=== PATIENT | female | born 1995 | race Caucasian/White ===

== ENCOUNTER 2019-11-28 16:25 | Emergency (ER) | payer MEDICAID ==
[~2019-11-28] VITALS: Ht 160 cm; Wt 81.6 kg
[2019-11-28 16:38] VITALS: BP 144/75
[2019-11-28] MEDS ORDERED: IBUPROFEN 800 MG TAB PO ONE (16:45)
--- NOTE | 2019-11-28 17:00 | NUR ---
24/F c/o tonsillar pain x 3 days and recurring tonsil stones usually able to rid of them but recurring more often now Temp 102.0 at triage hx--tonsil stones rx---none
--- NOTE | 2019-11-28 17:28 | NUR ---
Patient discharged with v/s stable. Written and verbal after care instructions given and explained. Patient alert, oriented and verbalized understanding of instructions. Ambulatory with steady gait. All questions addressed prior to discharge. ID band removed. Patient advised to follow up with PMD. Rx of ibuprofen, prednisone, and augmentin given. Patient educated on indication of medication including possible reaction and side effects. Opportunity to ask questions provided and answered.
[2019-11-28 17:30] VITALS: BP 144/75
== END 2019-11-28 17:28 | disposition home or self-care (01) ==
LOC: MED 16:25
DX: J02.0 Streptococcal pharyngitis (principal)
CPT/HCPCS: 99282

== ENCOUNTER 2019-12-20 20:08 | Emergency (ER) | payer MEDICAID ==
[~2019-12-20] VITALS: Ht 160 cm; Wt 83.9 kg
[2019-12-20 20:28] VITALS: BP 127/70
--- NOTE | 2019-12-20 20:37 | NUR ---
PT TAKEN TO BED 4
--- NOTE | 2019-12-20 20:45 | NUR ---
DR. DIANA AT BEDSIDE EVALUATING PT.
--- NOTE | 2019-12-20 20:53 | NUR ---
24 Y/O F PRESENTS TO ED C/O "LUMP ON THE LEFT SIDE INSIDE OF HER THROAT." PT STATES THAT SHE NOTICED THAT SHE HAS A "LUMP" ON THE LEFT SIDE OF HER THROAT. PER PT, PAINFUL WHEN SHE SWALLOWS AND HAS DIFFICULTY SWALLOWING. NO LUMPS WAS OBSERVED OUTSIDE OF HER NECK. AIRWAY INTACT, RR EVEN AND UNLABORED. LUNG SOUNDS CLEAR UPON AUSCULTATION. DENIES N/V/CHILLS/FEVER. BED LOCKED AND IN LOWEST POSITION, SIDE RAIL UP X1. WILL CONTINUE TO MONITOR. MHX: DENIES NKA
--- NOTE | 2019-12-20 20:54 | NUR ---
PT TAKEN TO RADIOLOGY VIA WHEELCHAIR.
--- NOTE | 2019-12-20 20:59 | NUR ---
PT RETURN FROM XRAY
--- NOTE | 2019-12-20 21:00 | NUR ---
PELON COLLECTED AND WALKED OVER TO LAB.
[2019-12-20 21:48] VITALS: BP 127/70
== END 2019-12-20 21:48 | disposition home or self-care (01) ==
LOC: MED 20:08
DX: J02.9 Acute pharyngitis, unspecified (principal)
CPT/HCPCS: 70360; 87081; 99284

== ENCOUNTER 2020-01-19 15:50 | Emergency (ER) | payer MEDICAID ==
[~2020-01-19] VITALS: Ht 160 cm; Wt 83.5 kg
[2020-01-19 16:00] VITALS: BP 117/67
--- NOTE | 2020-01-19 16:12 | NUR ---
PT AMBULATED TO ER BED 06
--- NOTE | 2020-01-19 16:18 | NUR ---
Pt c/o sternal chest pain that increases with breathing. States 6/10 pain that started this morning. Pain when palpated. Denies SOB/cough. Has had similar pain in the past. No trauma/injury. VSS medhx: denies
--- NOTE | 2020-01-19 16:20 | NUR ---
X-Ray at bedside.
[2020-01-19 16:58] VITALS: BP 117/67
--- NOTE | 2020-01-19 16:58 | NUR ---
Patient discharged with v/s stable. Written and verbal after care instructions given and explained. Patient alert, oriented and verbalized understanding of instructions. Ambulatory with steady gait. All questions addressed prior to discharge. ID band removed. Patient advised to follow up with PMD. Rx of Ibuprofen 400mg given. Patient educated on indication of medication including possible reaction and side effects. Opportunity to ask questions provided and answered.
== END 2020-01-19 16:58 | disposition home or self-care (01) ==
LOC: MED 15:50
DX: M94.0 Chondrocostal junction syndrome [Tietze] (principal)
CPT/HCPCS: 71045; 81025; 93005; 99283; Q0092

== ENCOUNTER 2020-11-10 10:58 | Emergency (ER) | payer MEDICAID ==
[~2020-11-10] VITALS: Ht 162.6 cm; Wt 86.2 kg
[2020-11-10 11:10] VITALS: BP 134/81
--- NOTE | 2020-11-10 11:10 | NUR ---
25 Y/O FEMALE C/O SORE THROAT X2 DAYS. WITH PHELGM. DENIES ANY RECENT FEVER OR COUGH. THROAT REDENSS NOTED. TONSILS SIZE 3+ PT STATES 9/10 SHARP PAIN. LUNG SOUNDS CLEAR. MEDHX: DENIES NKA
--- NOTE | 2020-11-10 11:13 | NUR ---
Patient ambulated with steady gait to bed 5.
--- NOTE | 2020-11-10 11:36 | NUR ---
DR GALLAGHER AT BEDSIDE EXAMINING PT
[2020-11-10] MEDS ORDERED: DEXAMETHASONE 4 MG/ML VIAL PO ONE (11:45)
--- NOTE | 2020-11-10 12:07 | NUR ---
STREP SWAB SAMPLE COLLECTED AND HANDED TO DAVID HARMON
[2020-11-10] MEDS ORDERED: AMOX500C25 PO (12:23)
[2020-11-10 12:57] VITALS: BP 134/81
== END 2020-11-10 12:57 | disposition home or self-care (01) ==
LOC: MED 10:58
DX: J02.9 Acute pharyngitis, unspecified (principal)
CPT/HCPCS: 87081; 99283; J1100

== ENCOUNTER 2021-09-15 10:16 | Emergency (ER) | payer MEDICAID ==
[~2021-09-15] VITALS: Ht 160 cm; Wt 85.7 kg
[~2021-09-15 10:16] MED LIST: AMOX500C25 PO
[2021-09-15 10:22] VITALS: BP 108/57
--- NOTE | 2021-09-15 10:28 | NUR ---
PT AMBULATED TO ER BED 9
--- NOTE | 2021-09-15 10:44 | NUR ---
DR. LOU EVALUATING PATIENT BEDSIDE
--- NOTE | 2021-09-15 10:50 | NUR ---
PATIENTS STATES SHE IS UNABLE TO PROVIDE URINE AT THIS TIME
[2021-09-15] MEDS ORDERED: ACETAMINOPHEN EXTRA STRENGTH 500 MG TAB PO ONE (11:00)
[2021-09-15] MEDS ORDERED: IBUPROFEN 800 MG TAB PO ONE (11:00)
--- NOTE | 2021-09-15 11:30 | NUR ---
25/F PRESENTS TO ED WITH C/O BILATERAL LOWER LEG PAIN X1 WEEK. PATIENT DENIES RECENT INJURY/TRAUMA OR EXERTION OF LEGS. PATIENT STATES SHE HAS BEEN TAKING TYLENOL AND MOTRIN WITH NO RELIEF. REPORTS 8/10 SHARP SHOOTING PAIN THAT WORSENS WITH TOUCH OF SITE OR WALKING. NO SIGNS OF REDNESS, SWELLING NOTED.
[2021-09-15 11:32] LABS: BASOPHILS % (AUTO) 0.3 % (0.0-2.0); EOSINOPHILS # (AUTO) 0.2 K/uL (0-0.4); HEMATOCRIT 41.9 % (36-48); HEMOGLOBIN 14.1 g/dL (12.0-16.0); LYMPHOCYTES # (AUTO) 2.4 K/uL (2.5-16.5); LYMPHOCYTES % (AUTO) 29.5 % (20.5-51.1); MEAN CORPUSCULAR HEMOGLOBIN 30 pg (27-31); MEAN CORPUSCULAR HGB CONC 34 g/dL (33-37); MEAN CORPUSCULAR VOLUME 89.1 fL (80-94); MONOCYTES # (AUTO) 0.8 K/uL (0.8-1.0); MONOCYTES % (AUTO) 9.4 % (1.7-9.3); NEUTROPHILS # (AUTO) 4.7 K/uL (1.8-7.7); NEUTROPHILS % (AUTO) 58.8 % (42.2-75.2); PLATELET COUNT (AUTO) 318 K/uL (140-450); RED CELL DISTRIBUTION WIDTH 12.7 % (11.6-13.7)
[2021-09-15 11:36] LABS: ANION GAP 11.6 (8-16); CARBON DIOXIDE 27.4 mmol/L (21-32); CREATININE 0.7 mg/dL (0.6-1.3); TOTAL BILIRUBIN 0.1 mg/dL (0.0-1.0)
--- NOTE | 2021-09-15 12:00 | NUR ---
US AT BEDSIDE
--- NOTE | 2021-09-15 12:22 | NUR ---
APPLICATION ARCHITECT MANAGER AT BEDSIDE
[2021-09-15] MEDS ORDERED: ACET-10509 PO (14:05)
[2021-09-15 14:22] VITALS: BP 122/62
--- NOTE | 2021-09-15 14:22 | NUR ---
Patient discharged with v/s stable. Written and verbal after care instructions given FOR MYERS SPLINTS and explained. Patient alert, oriented and verbalized understanding of instructions. Ambulatory with steady gait. All questions addressed prior to discharge. ID band removed. Patient advised to follow up with PMD. Rx of TYNENOL given. Patient educated on indication of medication including possible reaction and side effects. Opportunity to ask questions provided and answered.
== END 2021-09-15 14:22 | disposition home or self-care (01) ==
LOC: MED 10:16
DX: M76.812 Anterior tibial syndrome, left leg (principal); M76.811 Anterior tibial syndrome, right leg; E11.9 Type 2 diabetes mellitus without complications
CPT/HCPCS: 36415; 73590; 80053; 81002; 81025; 82553; 85025; 85651; 86140; 93970; 99285; Q0092; 99284

== ENCOUNTER 2021-10-09 01:23 | Emergency (ER) | payer MEDICAID ==
[~2021-10-09] VITALS: Ht 152.4 cm; Wt 86.2 kg
[~2021-10-09 01:23] MED LIST changes: +ACET-10509 PO
[2021-10-09 01:35] VITALS: BP 132/80
--- NOTE | 2021-10-09 01:40 | NUR ---
PT TAKEN TO BED 7
--- NOTE | 2021-10-09 01:42 | NUR ---
PATIENT AMBULATED TO THE AND BACK TO BED 7. URINE COLLECTED.
--- NOTE | 2021-10-09 01:43 | NUR ---
26/F BIB SELF C/O RLQ ABD PAIN X30MIN. 9/10 SHARP STABBING PAIN RAD TO MID ABD. PATIENT STATED THAT SHE GOT DIZZY DUE TO PAIN IN ABD. PER PATIENT " I'VE FELT THIS PAIN BEFORE YEARS AGO AND GOT DX WITH A SMALL OVARIAN CYST." PATIENT HAS IUD IN PLACE CONTROL, HAS NOT HAD PERIOD SINCE INSERTION. RR EVEN AND UNLABORED. NO SIGNS OF DISTRESS. SKIN WARM TO TOUCH AND INTACT. PATIENT DENIES N/V/D/C/SOB/CP AT THIS TIME. ALL NEEDS MET AT THIS TIME. PATIENT PLACED IN GOWN AND BED IN LOWEST POSITION. BED LOCKED, CALL LIGHT IN REACH. ALL NEEDS MET AT THIS TIME. PMHX ASTHMA, OVARIAN CYST MEDS DENIES NKA LMP SEPTEMBER 2019
[2021-10-09] MEDS ORDERED: KETOROLAC 30 MG/ML VIAL IVP ONE (01:55)
[2021-10-09] MEDS ORDERED: NACL 0.9% 1,000 ML IV SCH (01:55)
--- NOTE | 2021-10-09 02:05 | NUR ---
IV ESTABLISHED 20G LEFT AC, BLOOD COLLECTED AND HANDED TO LAB.
--- NOTE | 2021-10-09 02:09 | NUR ---
Dr. Smith examining patient.
--- NOTE | 2021-10-09 02:13 | NUR ---
PATIENT TAKEN TO CT VIA W/C
[2021-10-09 02:18] LABS: BASOPHILS % (AUTO) 0.4 % (0.0-2.0); EOSINOPHILS # (AUTO) 0.6 K/uL (0-0.4); EOSINOPHILS % (AUTO) 5.5 % (0.0-4.0); HEMATOCRIT 40.4 % (36-48); HEMOGLOBIN 13.8 g/dL (12.0-16.0); LYMPHOCYTES # (AUTO) 2.9 K/uL (2.5-16.5); LYMPHOCYTES % (AUTO) 28.6 % (20.5-51.1); MEAN CORPUSCULAR HEMOGLOBIN 30 pg (27-31); MEAN CORPUSCULAR HGB CONC 34 g/dL (33-37); MEAN CORPUSCULAR VOLUME 89.1 fL (80-94); MONOCYTES # (AUTO) 0.9 K/uL (0.8-1.0); MONOCYTES % (AUTO) 8.7 % (1.7-9.3); NEUTROPHILS # (AUTO) 5.8 K/uL (1.8-7.7); NEUTROPHILS % (AUTO) 56.8 % (42.2-75.2); PLATELET COUNT (AUTO) 328 K/uL (140-450); RED BLOOD CELL COUNT(AUTO) 4.54 MIL/uL (4.20-5.40); RED CELL DISTRIBUTION WIDTH 12.5 % (11.6-13.7); WHITE BLOOD COUNT (AUTO) 10.2 K/uL (4.8-10.8)
[2021-10-09 02:33] LABS: ALBUMIN 3.8 g/dL (3.4-5.0); ANION GAP 10.4 (8-16); CARBON DIOXIDE 29.2 mmol/L (21-32); CREATININE 0.7 mg/dL (0.6-1.3); POTASSIUM 3.6 mmol/L (3.5-5.1); TOTAL BILIRUBIN 0.2 mg/dL (0.0-1.0)
--- NOTE | 2021-10-09 02:38 | NUR ---
PATIENT STATED THAT PAIN DECREASED TO A TOLERABLE 5/10.
--- NOTE | 2021-10-09 02:44 | NUR ---
Ultrasound at bedside.
[2021-10-09] MEDS ORDERED: NAPR-1871 PO (05:51)
[2021-10-09] MEDS ORDERED: BEN10 PO (05:51)
[2021-10-09 06:02] VITALS: BP 121/71
--- NOTE | 2021-10-09 06:02 | NUR ---
Patient discharged with v/s stable. Written and verbal after care instructions given and explained for abdominal pain. Patient alert, oriented and verbalized understanding of instructions. Ambulatory with steady gait. All questions addressed prior to discharge. ID band removed. Patient advised to follow up with PMD. Rx of Bentyl and Naproxen given. Patient educated on indication of medication including possible reaction and side effects. Opportunity to ask questions provided and answered.
--- NOTE | 2021-10-09 06:03 | NUR ---
Chart checked and completed.
== END 2021-10-09 06:02 | disposition home or self-care (01) ==
LOC: MED 01:23
DX: R10.31 Right lower quadrant pain (principal); R03.0 Elevated blood-pressure reading, without diagnosis of hypertension; J45.909 Unspecified asthma, uncomplicated; F17.210 Nicotine dependence, cigarettes, uncomplicated; Z71.6 Tobacco abuse counseling; Z79.899 Other long term (current) drug therapy; Z79.2 Long term (current) use of antibiotics
CPT/HCPCS: 36415; 74176; 76856; 80053; 81002; 81025; 83690; 84703; 85025; 96361; 96374; 99285; J1885; J7030; Q0092

== ENCOUNTER 2022-03-28 09:49 | Emergency (ER) | payer MEDICAID ==
[~2022-03-28] VITALS: Ht 160 cm; Wt 88.9 kg
[~2022-03-28 09:49] MED LIST changes: +BEN10 PO; +NAPR-1871 PO
[2022-03-28 10:07] VITALS: BP 110/64
--- NOTE | 2022-03-28 10:31 | NUR ---
26/ PRESENTS TO ED WITH C/O COUGH, FEVERS AND SORE THROAT X1 WEEK, REPORTS TAKING MOTRIN, TYLENOL WITH NO RELIEF. KIDS SICK WITH SAME SYMPTOMS, DENIES CP, SOB.
[2022-03-28] MEDS ORDERED: ALBU0.0912 INH (10:53)
[2022-03-28] MEDS ORDERED: ROB PO (10:53)
--- NOTE | 2022-03-28 11:23 | NUR ---
Patient discharged with v/s stable. Written and verbal after care instructions given and explained. Patient alert, oriented and verbalized understanding of instructions. Ambulatory with steady gait. All questions addressed prior to discharge. ID band removed. Patient advised to follow up with PMD. Rx of ALBUTEROL, ROBITUSSIN given. Patient educated on indication of medication including possible reaction and side effects. Opportunity to ask questions provided and answered.
== END 2022-03-28 11:23 | disposition home or self-care (01) ==
LOC: MED 09:49
DX: B34.9 Viral infection, unspecified (principal); Z20.822 Contact with and (suspected) exposure to COVID-19; J45.909 Unspecified asthma, uncomplicated
CPT/HCPCS: 99283

== ENCOUNTER 2023-10-18 12:29 | Emergency (ER) | payer MEDICAID, OTHER ==
[~2023-10-18] VITALS: Ht 160 cm; Wt 86.2 kg
[~2023-10-18 12:29] MED LIST changes: +ALBU0.0912 INH; +ROB PO
[2023-10-18 12:43] VITALS: BP 126/68; PULSE 83; RESP 16; TEMP 97.1; O2SAT 100
[2023-10-18 13:42] LABS: BASOPHILS # (AUTO) 0.1 K/uL (0.00-0.22); BASOPHILS % (AUTO) 1.2 % (0.0-2.0); EOSINOPHILS # (AUTO) 0.1 K/uL (0-0.4); EOSINOPHILS % (AUTO) 1.8 % (0.0-4.0); HEMATOCRIT 40.4 % (36-48); HEMOGLOBIN 13.7 g/dL (12.0-16.0); LYMPHOCYTES # (AUTO) 2.3 K/uL (2.5-16.5); LYMPHOCYTES % (AUTO) 37.5 % (20.5-51.1); MEAN CORPUSCULAR HEMOGLOBIN 29 pg (27-31); MEAN CORPUSCULAR HGB CONC 34 g/dL (33-37); MEAN CORPUSCULAR VOLUME 86.9 fL (80-94); MONOCYTES # (AUTO) 0.4 K/uL (0.8-1.0); MONOCYTES % (AUTO) 5.7 % (1.7-9.3); NEUTROPHILS # (AUTO) 3.3 K/uL (1.8-7.7); NEUTROPHILS % (AUTO) 53.8 % (42.2-75.2); PLATELET COUNT (AUTO) 327 K/uL (140-450); RED BLOOD CELL COUNT(AUTO) 4.65 MIL/uL (4.20-5.40); RED CELL DISTRIBUTION WIDTH 13.7 % (11.6-13.7); WHITE BLOOD COUNT (AUTO) 6.2 K/uL (4.8-10.8)
[2023-10-18 13:53] LABS: ANION GAP 9.1 (8-16); CALCIUM 8.5 mg/dL (8.5-10.1); CARBON DIOXIDE 29.6 mmol/L (21-32); CREATININE 0.7 mg/dL (0.6-1.3); POTASSIUM 3.7 mmol/L (3.5-5.1)
[2023-10-18 14:07] LABS: ALANINE AMINOTRANSFERASE 29 U/L (12-78); ALBUMIN 3.9 g/dL (3.4-5.0); ALKALINE PHOSPHATASE 57 U/L (50-136); ASPARTATE AMINOTRANSFERASE 12 U/L (15-37); TOTAL BILIRUBIN 0.2 mg/dL (0.0-1.0)
[2023-10-18] MEDS ORDERED: KETOROLAC 30 MG/ML VIAL IVP ONE (15:10)
[2023-10-18] MEDS: methocarbamoL 500 MG TAB PO STA (15:14)
[2023-10-18] MEDS: KETOROLAC 30 MG/ML VIAL IM ONE (15:14)
[2023-10-18] MEDS: ACETAMINOPHEN 325 MG TAB PO ONE (15:15)
[2023-10-18] MEDS ORDERED: IBUP-2213 PO (15:32)
[2023-10-18 15:45] VITALS: BP 126/68; PULSE 83; RESP 16; TEMP 97.1; O2SAT 100
== END 2023-10-18 15:45 | disposition home or self-care (01) ==
LOC: MED 12:29
DX: R07.81 Pleurodynia (principal); J45.909 Unspecified asthma, uncomplicated; Z79.899 Other long term (current) drug therapy
CPT/HCPCS: 36415; 71045; 80048; 80076; 83880; 84484; 85025; 85379; 93005; 96374; 99285; J1885